=== PATIENT | female | born 1970 | race Asian ===

== ENCOUNTER 2016-11-14 00:34 | Inpatient (IN) | payer OTHER ==
[~2016-11-14] VITALS: Ht 157.5 cm; Wt 66.5 kg
[2016-11-14 01:28] LABS: UA SPECIFIC GRAVITY 1.015 (1.005-1.035); microscopic required? YES
[2016-11-14 01:30] LABS: urine erythrocyte 3+ (NEGATIVE)
[2016-11-14 01:59] LABS: PLATELET COUNT 376 x10^3mcL (130-400)
[2016-11-14 02:04] LABS: CALCIUM 9.3 mg/dL (8.5-10.1); CHLORIDE SERUM 105 mmol/L (98-107); CREATININE SERUM 0.9 mg/dL (0.6-1.0); GFR1 > 60 mL/min; GLUCOSE SERUM 138 mg/dL (74-106); SODIUM SERUM 141 mmol/L (136-145)
[2016-11-14 02:08] LABS: ALBUMIN 3.9 g/dL (3.4-5.0); ALKALINE PHOSPHATASE 58 U/L (46-116); ALT/SGPT 54 U/L (14-59); AST/SGOT 35 U/L (15-37); BILIRUBIN TOTAL 0.17 mg/dL (0.20-1.00); TOTAL PROTEIN, SERUM 7.5 g/dL (6.4-8.2)
[2016-11-14] MEDS ORDERED: METOPROLOL SUCC50 M2 PO (02:38)
[2016-11-14 04:29] VITALS: BP 120/78
[2016-11-14 04:31] LABS: FREE T4 0.81 ng/dL (0.76-1.46); FREE THYROXINE INDEX 2.7 ug/dL (1.4-4.5); T3 TOTAL 1.18 ng/mL; T4(THYROXINE) 8.3 ug/dL (4.7-13.3)
[2016-11-14] MEDS ORDERED: LEVOTHYROXINE0.05 M2 PO (04:40)
[2016-11-14] MEDS ORDERED: TAMOXIFEN CITRA20 MG PO (04:41)
[2016-11-14 06:52] VITALS: BP 113/69
[2016-11-14 08:56] VITALS: BP 108/69
[2016-11-14 17:30] VITALS: BP 130/85
[2016-11-14 21:02] VITALS: BP 140/86
[2016-11-15 05:41] VITALS: BP 116/67
[2016-11-15 06:00] LABS: BASOPHIL % 0.6 % (0-2); PLATELET COUNT 326 x10^3mcL (130-400); RED CELL DISTRIBUTION WIDTH 13.1 % (11.5-14.5)
[2016-11-15 06:13] LABS: CALCIUM 8.2 mg/dL (8.5-10.1); CARBON DIOXIDE 27.8 mmol/L (21-32); CHLORIDE SERUM 111 mmol/L (98-107); CREATININE SERUM 0.7 mg/dL (0.6-1.0); GFR1 > 60 mL/min; GLUCOSE SERUM 94 mg/dL (74-106); PHOSPHOROUS 2.9 mg/dL (2.5-4.9); POTASSIUM SERUM 4.5 mmol/L (3.5-5.1); SODIUM SERUM 147 mmol/L (136-145)
[2016-11-15 08:25] VITALS: BP 115/79
[2016-11-15 16:50] VITALS: BP 127/86
[2016-11-15 20:35] VITALS: BP 127/80
[2016-11-16 05:49] VITALS: BP 124/78
[2016-11-16 06:08] LABS: BASOPHIL % 0.2 % (0-2); PLATELET COUNT 358 x10^3mcL (130-400)
[2016-11-16 06:14] LABS: CARBON DIOXIDE 24.8 mmol/L (21-32); CHLORIDE SERUM 108 mmol/L (98-107); CREATININE SERUM 0.7 mg/dL (0.6-1.0); GFR1 > 60 mL/min; GLUCOSE SERUM 100 mg/dL (74-106); PHOSPHOROUS 3.3 mg/dL (2.5-4.9); POTASSIUM SERUM 4.4 mmol/L (3.5-5.1); SODIUM SERUM 145 mmol/L (136-145)
[2016-11-16 08:16] VITALS: BP 124/78
[2016-11-16] MEDS ORDERED: LAC PO ×2 (08:21→09:44)
[2016-11-16] MEDS ORDERED: PYR100 PO ×2 (08:22→09:44)
[2016-11-16] MEDS ORDERED: COLACE100 MG PO ×2 (08:23→09:44)
[2016-11-16] MEDS ORDERED: NORCO1 TA2 PO (08:23)
[2016-11-16] MEDS ORDERED: CIPRO500 MG PO ×2 (08:23→09:44)
[2016-11-16 09:39] VITALS: BP 134/84
== END 2016-11-16 10:12 | disposition home or self-care (01) | DRG 660 ==
LOC: ED 00:34 → DU 02:54 → MU 02:54 → DU 04:00 → MU 12:24
PROVIDERS: Emergency Medicine; Family Medicine; Urology; ADMIT Family Medicine
PROC: 0TC18ZZ Extirpation of Matter from Left Kidney, Via Natural or Artificial Opening Endoscopic (ICD-10-PCS; 2016-11-15)
PROC: 0T778DZ Dilation of Left Ureter with Intraluminal Device, Via Natural or Artificial Opening Endoscopic (ICD-10-PCS; 2016-11-15)
PROC: 0TC48ZZ Extirpation of Matter from Left Kidney Pelvis, Via Natural or Artificial Opening Endoscopic (ICD-10-PCS; principal; 2016-11-15 17:30)
DX: N13.2 Hydronephrosis with renal and ureteral calculous obstruction (principal); E87.0 Hyperosmolality and hypernatremia; N17.0 Acute kidney failure with tubular necrosis; N39.0 Urinary tract infection, site not specified; C50.912 Malignant neoplasm of unspecified site of left female breast; C50.911 Malignant neoplasm of unspecified site of right female breast; I10 Essential (primary) hypertension; E03.9 Hypothyroidism, unspecified; M85.80 Other specified disorders of bone density and structure, unspecified site; Z90.13 Acquired absence of bilateral breasts and nipples; Z79.810 Long term (current) use of selective estrogen receptor modulators (SERMs); Z90.710 Acquired absence of both cervix and uterus; Z68.26 Body mass index [BMI] 26.0-26.9, adult
CPT/HCPCS: 83880; 84439; C1769; C2625; J1885; J1956; J2250; J2270; J2405; J2704; J3010; J3490; J7030; J7120; Q0162; Q9958

== ENCOUNTER 2019-11-11 07:31 | Emergency (ER) | payer OTHER ==
[~2019-11-11] VITALS: Ht 157.5 cm; Wt 68.0 kg
[~2019-11-11 07:31] MED LIST: CIPRO500 MG PO; COLACE100 MG PO; LAC PO; LEVOTHYROXINE0.05 M2 PO; METOPROLOL SUCC50 M2 PO; NORCO1 TA2 PO; PYR100 PO; TAMOXIFEN CITRA20 MG PO
[2019-11-11 07:35] VITALS: Ht 157.5 cm; Wt 68.0 kg
[2019-11-11 10:33] VITALS: BP 142/62
== END 2019-11-11 10:33 | disposition home or self-care (01) ==
LOC: ED 07:31
DX: S52.502A Unspecified fracture of the lower end of left radius, initial encounter for closed fracture (principal); I10 Essential (primary) hypertension; E03.9 Hypothyroidism, unspecified; Z88.0 Allergy status to penicillin; Z90.710 Acquired absence of both cervix and uterus; V49.3XXA Car occupant (driver) (passenger) injured in unspecified nontraffic accident, initial encounter; Y93.89 Activity, other specified; Y92.413 State road as the place of occurrence of the external cause; Y99.8 Other external cause status
CPT/HCPCS: J2001; J3010; J3490; Q0092